=== PATIENT | female | born 1960 | race Two or more races ===

== ENCOUNTER 2020-09-25 18:18 | Inpatient (IN) | payer BC, OTHER ==
[~2020-09-25] VITALS: Ht 162.6 cm; Wt 93.3 kg
[2020-09-25] MEDS ORDERED: ONDANSETRON HCL 4 MG/2 ML VIAL IV ONE (18:45)
[2020-09-25] MEDS ORDERED: KETOROLAC TROMETH 30 MG/ML 1ML VIAL IV ONE (18:45)
[2020-09-25 18:52] LABS: Basophils # (auto) 0.1 10 ^3/uL (0-0.2); Basophils % (auto) 0.9 % (0.0-2.0); Eosinophils # (auto) 0.1 10 ^3/uL (0-0.8); Eosinophils % (auto) 1.2 % (0.0-7.0); Hematocrit 45.8 % (36.0-46.0); Hemoglobin 15.8 g/dL (12.2-16.2); Lymphocytes # (auto) 1.6 10 ^3/uL (0.4-5.4); Lymphocytes % (auto) 18.1 % (10.0-50.0); Mean Corpuscular Hgb Conc. 34.6 g/dL (32.0-36.0); Mean Corpuscular Volume 89.7 fL (80.0-100.0); Monocytes # (auto) 0.7 10 ^3/uL (0-1.3); Monocytes % (auto) 7.7 % (0.0-12.0); Neutrophils # (auto) 6.3 10 ^3/uL (1.6-8.6); Neutrophils % (auto) 72.1 % (37.0-80.0); Nucleated Red Blood Cells % 0.1 %; Platelet Count (auto) 318 10^3/uL (140-450); White Blood Cell 8.8 10^3/uL (4.4-10.8)
[2020-09-25 19:10] LABS: Albumin 4.2 g/dL (3.4-5.0); BUN/Creatinine Ratio 16.3; Calcium 9.2 mg/dL (8.5-10.1); Potassium 3.6 mmol/L (3.5-5.1)
[2020-09-25 19:13] LABS: Bilirubin, Total 2.2 mg/dL (0.2-1.0); Total Protein 8.3 g/dL (6.4-8.2)
[2020-09-25 20:57] LABS: Urine Bacteria FEW /hpf (None Seen); Urine Blood TRACE /uL (Negative); Urine Hyaline Cast FEW /lpf (0 - 2); Urine Mucus FEW (None Seen); Urine Specific Gravity 1.024 (1.001-1.035); Urine WBC <1 /hpf (0 - 5)
[2020-09-25] MEDS ORDERED: ACETAMINOPHEN 325 MG TAB PO PRN (22:30)
[2020-09-25] MEDS ORDERED: DOCUSATE SOD 100 MG CAP PO PRN (22:30)
[2020-09-25] MEDS ORDERED: MORPHINE SULFATE 4 MG/ML SYR/VIAL IV PRN (22:30)
[2020-09-25] MEDS ORDERED: MORPHINE SULF INJ 2 MG/ML SYRINGE 1ML IV PRN (22:30)
[2020-09-25] MEDS ORDERED: NITROGLYCERIN 0.4 MG SL TAB SL PRN (22:30)
[2020-09-25] MEDS ORDERED: ONDANSETRON HCL 4 MG/2 ML VIAL IV PRN (22:30)
[2020-09-25] MEDS ORDERED: TEMAZEPAM 15 MG CAP PO PRN (22:30)
[2020-09-25] MEDS ORDERED: SODIUM CHLORIDE 0.9% 1,000 ML IV SCH (23:00)
[2020-09-25] MEDS: SODIUM CHLORIDE 0.9% 1,000 ML IV SCH (23:14)
[2020-09-26 05:00] VITALS: BP 128/73
[2020-09-26] MEDS ORDERED: KETOROLAC TROMETH 30 MG/ML 1ML VIAL IV PRN (06:00)
[2020-09-26 06:53] LABS: Basophils # (auto) 0.1 10 ^3/uL (0-0.2); Basophils % (auto) 1.4 % (0.0-2.0); Eosinophils # (auto) 0.2 10 ^3/uL (0-0.8); Eosinophils % (auto) 3.5 % (0.0-7.0); Hematocrit 43.8 % (36.0-46.0); Hemoglobin 15.2 g/dL (12.2-16.2); Lymphocytes # (auto) 1.2 10 ^3/uL (0.4-5.4); Lymphocytes % (auto) 27.2 % (10.0-50.0); Mean Corpuscular Hemoglobin 31.4 pg (28.0-32.0); Mean Corpuscular Hgb Conc. 34.6 g/dL (32.0-36.0); Mean Corpuscular Volume 90.6 fL (80.0-100.0); Monocytes # (auto) 0.5 10 ^3/uL (0-1.3); Monocytes % (auto) 10.5 % (0.0-12.0); Neutrophils # (auto) 2.5 10 ^3/uL (1.6-8.6); Neutrophils % (auto) 57.4 % (37.0-80.0); Nucleated Red Blood Cells % 0.1 %; Platelet Count (auto) 265 10^3/uL (140-450); Red Blood Cells 4.84 10^6/uL (4.0-5.20); Red Cell Distribution Width 14.2 % (11.8-14.3); White Blood Cell 4.3 10^3/uL (4.4-10.8)
[2020-09-26 07:11] LABS: Albumin 3.6 g/dL (3.4-5.0); BUN/Creatinine Ratio 13.8; Calcium 8.5 mg/dL (8.5-10.1); Potassium 3.6 mmol/L (3.5-5.1)
[2020-09-26 07:20] LABS: Bilirubin, Total 3.5 mg/dL (0.2-1.0); Total Protein 7.2 g/dL (6.4-8.2)
[2020-09-26 09:00] VITALS: BP 136/80
[2020-09-26] MEDS: FAMOTIDINE (10MG/ML) 2ML VL IV SCH ×2 (09:16→21:36)
[2020-09-26] MEDS: ENOXAPARIN SOD 40 MG/0.4 ML SYRINGE SC SCH (09:16)
[2020-09-26 13:00] VITALS: BP 144/85
[2020-09-26] MEDS ORDERED: metroNIDAZOLE 500MG/100ML 100 ML IV ONE (14:45)
[2020-09-26] MEDS ORDERED: cefTRIAXone 1GM/50ML D5W 50 ML IV ONE (14:45)
[2020-09-26] MEDS: SODIUM CHLORIDE 0.9% 1,000 ML IV SCH (16:36)
[2020-09-26 16:48] VITALS: BP 153/85
[2020-09-26] MEDS: metroNIDAZOLE 500MG/100ML 100 ML IV SCH (21:36)
[2020-09-26 21:58] VITALS: BP 126/67
[2020-09-27 05:00] VITALS: BP 151/84
[2020-09-27] MEDS: metroNIDAZOLE 500MG/100ML 100 ML IV SCH ×3 (06:06→21:29)
[2020-09-27 06:24] LABS: Basophils # (auto) 0.1 10 ^3/uL (0-0.2); Basophils % (auto) 1.9 % (0.0-2.0); Eosinophils # (auto) 0.3 10 ^3/uL (0-0.8); Eosinophils % (auto) 5.9 % (0.0-7.0); Hematocrit 43.7 % (36.0-46.0); Hemoglobin 14.9 g/dL (12.2-16.2); Lymphocytes # (auto) 1.3 10 ^3/uL (0.4-5.4); Mean Corpuscular Hemoglobin 31.2 pg (28.0-32.0); Mean Corpuscular Hgb Conc. 34.1 g/dL (32.0-36.0); Mean Corpuscular Volume 91.6 fL (80.0-100.0); Monocytes # (auto) 0.4 10 ^3/uL (0-1.3); Monocytes % (auto) 7.8 % (0.0-12.0); Neutrophils # (auto) 2.7 10 ^3/uL (1.6-8.6); Neutrophils % (auto) 57.4 % (37.0-80.0); Nucleated Red Blood Cells % 0.1 %; Platelet Count (auto) 277 10^3/uL (140-450); Red Blood Cells 4.77 10^6/uL (4.0-5.20); Red Cell Distribution Width 13.9 % (11.8-14.3); White Blood Cell 4.7 10^3/uL (4.4-10.8)
[2020-09-27 06:37] LABS: Albumin 3.3 g/dL (3.4-5.0); Calcium 8.5 mg/dL (8.5-10.1); Magnesium 2.2 mg/dL (1.6-2.6); Potassium 3.6 mmol/L (3.5-5.1)
[2020-09-27 06:46] LABS: Bilirubin, Total 3.7 mg/dL (0.2-1.0); Total Protein 6.9 g/dL (6.4-8.2)
[2020-09-27 08:00] VITALS: BP 149/85
[2020-09-27 09:00] VITALS: BP 149/85
[2020-09-27] MEDS: SODIUM CHLORIDE 0.9% 1,000 ML IV SCH ×2 (09:36→13:28)
[2020-09-27] MEDS: cefTRIAXone 1GM/50ML D5W 50 ML IV SCH (09:37)
[2020-09-27] MEDS: ENOXAPARIN SOD 40 MG/0.4 ML SYRINGE SC SCH (09:37)
[2020-09-27] MEDS: FAMOTIDINE (10MG/ML) 2ML VL IV SCH ×2 (09:37→21:28)
[2020-09-27 13:00] VITALS: BP 150/88
[2020-09-27 17:00] VITALS: BP 158/95
[2020-09-27 22:00] VITALS: BP 142/80
[2020-09-28 05:00] VITALS: BP 135/87
[2020-09-28] MEDS: metroNIDAZOLE 500MG/100ML 100 ML IV SCH ×3 (05:52→21:28)
[2020-09-28 06:36] LABS: Albumin 3.8 g/dL (3.4-5.0); Potassium 3.6 mmol/L (3.5-5.1)
[2020-09-28 06:40] LABS: Bilirubin, Direct 0.9 mg/dL (0-0.2); Bilirubin, Total 1.9 mg/dL (0.2-1.0); Total Protein 7.9 g/dL (6.4-8.2)
[2020-09-28 09:00] VITALS: BP 143/76
[2020-09-28] MEDS: SODIUM CHLORIDE 0.9% 1,000 ML IV SCH (09:15)
[2020-09-28] MEDS: FAMOTIDINE (10MG/ML) 2ML VL IV SCH ×2 (09:30→21:28)
[2020-09-28] MEDS: ENOXAPARIN SOD 40 MG/0.4 ML SYRINGE SC SCH (09:30)
[2020-09-28] MEDS: cefTRIAXone 1GM/50ML D5W 50 ML IV SCH (09:32)
[2020-09-28 13:00] VITALS: BP 153/76
[2020-09-28 17:00] VITALS: BP 156/100
[2020-09-28 22:00] VITALS: BP 144/80
[2020-09-29 05:00] VITALS: BP 125/70
[2020-09-29] MEDS: SODIUM CHLORIDE 0.9% 1,000 ML IV SCH (05:15)
[2020-09-29] MEDS: metroNIDAZOLE 500MG/100ML 100 ML IV SCH ×3 (05:28→21:33)
[2020-09-29 07:37] LABS: Albumin 3.5 g/dL (3.4-5.0); Bilirubin, Direct 0.6 mg/dL (0-0.2)
[2020-09-29 07:40] LABS: Bilirubin, Total 1.3 mg/dL (0.2-1.0); Total Protein 7.1 g/dL (6.4-8.2)
[2020-09-29 08:30] VITALS: BP 139/81
[2020-09-29] MEDS: cefTRIAXone 1GM/50ML D5W 50 ML IV SCH (09:28)
[2020-09-29] MEDS: FAMOTIDINE (10MG/ML) 2ML VL IV SCH ×2 (09:29→21:33)
[2020-09-29] MEDS: ENOXAPARIN SOD 40 MG/0.4 ML SYRINGE SC SCH (09:29)
[2020-09-29 12:30] VITALS: BP 135/82
[2020-09-29 17:00] VITALS: BP 166/98
[2020-09-29 17:27] VITALS: BP 154/82
[2020-09-29 22:00] VITALS: BP 140/91
[2020-09-30] MEDS: SODIUM CHLORIDE 0.9% 1,000 ML IV SCH (01:15)
[2020-09-30 05:00] VITALS: BP 130/84
[2020-09-30 05:41] LABS: Albumin 3.4 g/dL (3.4-5.0); Bilirubin, Direct 0.5 mg/dL (0-0.2); Potassium 3.5 mmol/L (3.5-5.1)
[2020-09-30 05:44] LABS: Bilirubin, Total 1.1 mg/dL (0.2-1.0)
[2020-09-30] MEDS: metroNIDAZOLE 500MG/100ML 100 ML IV SCH ×2 (05:52→14:46)
[2020-09-30 08:30] VITALS: BP 130/84
[2020-09-30] MEDS: ENOXAPARIN SOD 40 MG/0.4 ML SYRINGE SC SCH (10:00)
[2020-09-30] MEDS: FAMOTIDINE (10MG/ML) 2ML VL IV SCH (10:16)
[2020-09-30] MEDS: cefTRIAXone 1GM/50ML D5W 50 ML IV SCH (10:16)
[2020-09-30 12:30] VITALS: BP 131/83
[2020-09-30] MEDS ORDERED: hydrALAZINE HCL 20 MG/ML VL IV PRN (13:15)
[2020-09-30 13:40] VITALS: BP 131/83
[2020-09-30 17:00] VITALS: BP 143/90
== END 2020-09-30 16:50 | disposition short-term general hospital (02) | DRG 446 ==
LOC: ER 18:18 → TELE 22:29 → TELE-EAST 23:36
PROVIDERS: ADMIT Nurse Practitioner Family; ATTEND Internal Medicine
DX: K80.62 Calculus of gallbladder and bile duct with acute cholecystitis without obstruction (principal); Z20.822 Contact with and (suspected) exposure to COVID-19; D35.01 Benign neoplasm of right adrenal gland; D35.02 Benign neoplasm of left adrenal gland; E66.9 Obesity, unspecified; F17.210 Nicotine dependence, cigarettes, uncomplicated; L40.9 Psoriasis, unspecified; R94.5 Abnormal results of liver function studies; R74.8 Abnormal levels of other serum enzymes; Z82.3 Family history of stroke; Z83.3 Family history of diabetes mellitus; Z98.51 Tubal ligation status; Z88.5 Allergy status to narcotic agent; Z88.6 Allergy status to analgesic agent; Z68.35 Body mass index [BMI] 35.0-35.9, adult
CPT/HCPCS: 36415; 74176; 74181; 76705; 80053; 80076; 81001; 82150; 83690; 83735; 84132; 85025; 87426; 93005; G0378; J0696; J1885; J2405; J3490